=== PATIENT | female | born 2005 | race Caucasian/White ===

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

== ENCOUNTER 2024-02-13 17:52 | Emergency (ER) | payer BC ==
[2024-02-13] MEDS ORDERED: SODIUM CHLORIDE 0.9% 1,000 ML IV STA (18:21)
[2024-02-13 18:26] VITALS: RESP 16; TEMP 98
--- NOTE | 2024-02-13 18:27 | ED ---
Dizziness HPI - General Chief Complaint: Syncope Stated Complaint: Syncope Time Seen by Provider: 02/13/24 18:03 Source: patient, EMS, RN notes reviewed Mode of arrival: EMS Limitations: no limitations - History of Present Illness Initial Comments: 19-year-old female who states she has syncopal episode about an hour prior to coming to the ER today. She states she has been having trouble getting up and suffering dizzy spells and sweats she states she is having to eat or drink very well last least several days food just does not taste good to her. She did fall and hit the back and side of her head she complains of right side head pain she has had some neck pain for the past couple days cannot related to today's incident. No loss of function to her upper or lower extremities no fevers chills or sweats she has had some nausea no other complaints she denies any chance of . She does smoke marijuana but this does not help her appetite she states she also states she has been having some epigastric discomfort intermittently. She does have a history of cholecystectomy for biliary dyskinesia. MD Complaint: dizziness, near syncope, other - Related Data Home Medications Medication Instructions Recorded Confirmed Ibuprofen 200 mg PO Q8H PRN 05/01/21 05/02/21 Previous Rx's Medication Instructions Recorded Acetaminophen Tab [Tylenol] 650 mg PO Q6H #30 tab 05/02/21 Docusate [Colace] 100 mg PO BID #20 capsule 05/02/21 oxyCODONE HCL [OxyIR] 5 mg PO Q6H PRN 3 Days #10 tab 05/02/21 Allergies Allergy/AdvReac Type Severity Reaction Status Date / Time No Known Allergies Allergy Verified 05/02/21 08:04 Review of Systems ROS Statement: Those systems with pertinent positive or pertinent negative responses have been documented in the HPI. ROS Other: All systems not noted in ROS Statement are negative. Past Medical History Past Medical History: Chest Pain / Angina, Neurologic Disorder Additional Past Medical History / Comment(s): visual snow syndrome, Gallbladder issues, diarrhea for couple months, "chest pain could be from gall bladder problems", nipple piercing History of Any Multi-Drug Resistant Organisms: None Reported Past Surgical History: Orthopedic Surgery Additional Past Surgical History / Comment(s): rt knee arthroscopy Past Anesthesia/Blood Transfusion Reactions: No Reported Reaction Smoking Status: Vaper - Past Family History Mother Family Medical History: No Reported History General Exam - General Exam Comments Initial Comments: This is a well-developed well-nourished awake alert oriented x 4 female with a [place] Coma Scale of 15 Limitations: no limitations General appearance: alert, in no apparent distress Head exam: Present: normocephalic, normal inspection, other (Some tenderness palpation of the right temporal scalp near the forehead no step-off or crepitation no obvious bruising seen) Eye exam: Present: normal appearance, PERRL, EOMI. Absent: scleral icterus, conjunctival injection, periorbital swelling ENT exam: Present: mucous membranes dry Neck exam: Present: normal inspection, tenderness (Mild paraspinous tenderness to palpation no midline tenderness), full ROM, other (No stridor JVD or bruits). Absent: meningismus, lymphadenopathy Respiratory exam: Present: normal lung sounds bilaterally. Absent: respiratory distress, wheezes, rales, rhonchi, stridor Cardiovascular Exam: Present: regular rate, normal rhythm, normal heart sounds. Absent: systolic murmur, diastolic murmur, rubs, gallop, clicks GI/Abdominal exam: Present: soft, normal bowel sounds. Absent: distended, tenderness, guarding, rebound, rigid Extremities exam: Present: normal inspection, full ROM, normal capillary refill. Absent: tenderness, pedal edema, joint swelling, calf tenderness Back exam: Present: normal inspection Neurological exam: Present: alert, oriented X3, CN II-XII intact Psychiatric exam: Present: normal affect, normal mood Skin exam: Present: warm, dry, intact, normal color. Absent: rash Course Vital Signs 02/13/24 02/13/24 17:55 19:03 Temperature 98.0 F Pulse Rate 99 Respiratory 16 16 Rate Blood Pressure 138/88 Blood Pressure 134/88 [Right Arm Sitting] Blood Pressure 147/103 [Right Arm Supine] Blood Pressure 128/83 [Right Arm] O2 Sat by Pulse 99 96 Oximetry EKG Findings - EKG Results: EKG: interpreted by [facility] (EKG shows sinus rhythm 75 parable 168 QRS duration 96 QT/QTc 390/[address]-T wave changes) Medical Decision Making - Medical Decision Making I did reevaluate the patient on several occasions she is feeling much improved after IV fluids. I did discuss with her the findings and did recommend she quit smoking marijuana increase her oral intake of food and fluids. Multiple family members at the bedside. Patient will be discharged home with the above recommendations. I did caution her that marijuana can many times include other drugs that people are not aware of. Was pt. sent in by a medical professional or institution (BALAJI Hobbs, VARNISHING MACHINE OPERATOR, urgent care, hospital, or [place] health care facility...) When possible be specific @ -No Did you speak to anyone other than the patient for history (EMS, parent, family, police, friend...)? What history was obtained from this source @ -EMS personnel Did you review nursing and triage notes (agree or disagree)? Why? @ -I reviewed and agree with nursing and triage notes Were old charts reviewed (outside hosp., previous admission, EMS record, old EK G, old radiological studies, urgent care reports/EKG's, [place] [facility] facility records)? Report findings @ -Old charts were reviewed Differential Diagnosis (chest pain, altered mental status, abdominal pain women, abdominal pain men, vaginal bleeding, weakness, fever, dyspnea, syncope, headache, dizziness, GI bleed, back pain, seizure, CVA, palpatations, mental health, musculoskeletal)? @ -Syncope EKG interpreted by me (3pts min.). @ -As above EKG interpreted by me sinus rhythm with sinus arrhythmia rate 75 parable 168 QRS duration 96 QT/QTc 390/419 left atrial enlargement possible right ventricular conduction delay nonspecific ST configuration no acute process seen X-rays interpreted by me (1pt min.). @ -Interpreted by me no acute process seen CT interpreted by me (1pt min.). @ -Imaging interpreted by me no acute process seen U/S interpreted by me (1pt. min.). @ -None done What testing was considered but not performed or refused? (CT, X-rays, U/S, labs)? Why? @ -None What meds were considered but not given or refused? Why? @ -None Did you discuss the management of the patient with other professionals (professionals i.e. BALAJI Hobbs, VARNISHING MACHINE OPERATOR, lab, RT, psych nurse, social contact worker, financial management, teacher, guest services officer, case making machine operator)? Give summary @ -No Was smoking cessation discussed for >3mins.? @ -No Was critical care preformed (if so, how long)? @ -No Were there social determinants of health that impacted care today? How? (Homelessness, low income, unemployed, alcoholism, drug addiction, transportation, low edu. Level, literacy, decrease access to med. care, fci, rehab)? @ -No Was there de-escalation of care discussed even if they declined (Discuss DNR or withdrawal of care, Hospice)? DNR status @ -No What co-morbidities impacted this encounter? (DM, HTN, Smoking, COPD, CAD, Ca ncer, CVA, ARF, Chemo, Hep., AIDS, mental health diagnosis, sleep apnea, morbid obesity)? @ -Anorexia, prior history of cholecystectomy Was patient admitted / discharged? Hospital course, mention meds given and route, prescriptions, significant lab abnormalities, going to OR and other pertinent info. @ -Hospital course the patient was discharged home with instructions to increase oral fluids and food and avoid marijuana. Undiagnosed new problem with uncertain prognosis? @ -No Drug Therapy requiring intensive monitoring for toxicity (Heparin, Nitro, Insulin, Cardizem)? @ -No Were any procedures done? @ -No Diagnosis/symptom? @ -Syncope, scalp contusion, marijuana use, dehydration Acute, or Chronic, or Acute on Chronic? @ -Acute Uncomplicated (without systemic symptoms) or Complicated (systemic symptoms)? @ -Default Side effects of treatment? @ -No Exacerbation, Progression, or Severe Exacerbation? @ -No Poses a threat to life or bodily function? How? (Chest pain, [place], [place], pneumonia, PE, COPD, DKA, ARF, appy, cholecystitis, CVA, Diverticulitis, Homicidal, Suicidal, threat to staff... and all critical care pts) @ -Potential, syncope - Lab Data Result diagrams: 02/13/24 18:46 02/13/24 18:46 Lab Results 02/13/24 02/13/24 02/13/24 Range/Units 18:46 18:46 18:46 WBC 9.8 (3.8-10.6) k/uL RBC 5.11 (3.80-5.40) m/uL Hgb 14.9 (11.4-16.0) gm/dL Hct 44.6 (34.0-46.0) % MCV 87.4 (80.0-100.0) fL MCH 29.2 (25.0-35.0) pg MCHC 33.4 (31.0-37.0) g/dL RDW 12.2 (11.5-15.5) % Plt Count 364 (150-450) k/uL MPV 8.2 Neutrophils % 71 % Lymphocytes % 21 % Monocytes % 5 % Eosinophils % 1 % Basophils % 1 % Neutrophils # 7.0 (1.3-7.7) k/uL Lymphocytes # 2.1 (1.0-4.8) k/uL Monocytes # 0.5 (0-1.0) k/uL Eosinophils # 0.1 (0-0.7) k/uL Basophils # 0.1 (0-0.2) k/uL D-Dimer 0.18 (<0.60) mg/L FEU Sodium (137-145) mmol/L Potassium (3.5-5.1) mmol/L Chloride (98-107) mmol/L Carbon Dioxide (22-30) mmol/L Anion Gap mmol/L BUN (7-17) mg/dL Creatinine (0.52-1.04) mg/dL Est GFR (CKD-EPI)AfAm (>60 ml/min/1.73 sqM) Est GFR (CKD-EPI)NonAf (>60 ml/min/1.73 sqM) Glucose (74-99) mg/dL Calcium (8.4-10.2) mg/dL Magnesium (1.6-2.3) mg/dL Total Bilirubin (0.2-1.3) mg/dL AST (14-36) U/L ALT (4-34) U/L Alkaline Phosphatase (38-126) U/L Creatine Kinase (30-135) U/L Troponin I (0.000-0.034) ng/mL Total Protein (6.3-8.2) g/dL Albumin (3.5-5.0) g/dL TSH (0.465-4.680) mIU/L Urine Color Yellow Urine Appearance Cloudy H (Clear) Urine pH 6.0 (5.0-8.0) Ur Specific [place] 1.030 (1.001-1.035) Urine Protein 1+ H (Negative) Urine Glucose (UA) Negative (Negative) Urine Ketones 2+ H (Negative) Urine Blood Negative (Negative) Urine Nitrite Negative (Negative) Urine Bilirubin Negative (Negative) Urine Urobilinogen <2.0 (<2.0) mg/dL Ur Leukocyte Esterase Moderate H (Negative) Urine RBC 1 (0-5) /hpf Urine WBC 7 H (0-5) /hpf Ur Squamous Epith Cells 5 H (0-4) /hpf Urine Mucus Many H (None) /hpf Urine HCG, Qual (Not Detectd) Urine Opiates Screen Not Detected (NotDetected) Ur Oxycodone Screen Not Detected (NotDetected) Urine Methadone Screen Not Detected (NotDetected) Ur Barbiturates Screen Not Detected (NotDetected) U Tricyclic Antidepress Not Detected (NotDetected) Ur Phencyclidine Scrn Not Detected (NotDetected) Ur Amphetamines Screen Detected H (NotDetected) U Methamphetamines Scrn Detected H (NotDetected) U Benzodiazepines Scrn Not Detected (NotDetected) Urine Cocaine Screen Not Detected (NotDetected) U Marijuana (THC) Screen Detected H (NotDetected) Serum Alcohol mg/dL 02/13/24 02/13/24 02/13/24 Range/Units 18:46 18:46 18:46 WBC (3.8-10.6) k/uL RBC (3.80-5.40) m/uL Hgb (11.4-16.0) gm/dL Hct (34.0-46.0) % MCV (80.0-100.0) fL MCH (25.0-35.0) pg MCHC (31.0-37.0) g/dL RDW (11.5-15.5) % Plt Count (150-450) k/uL MPV Neutrophils % % Lymphocytes % % Monocytes % % Eosinophils % % Basophils % % Neutrophils # (1.3-7.7) k/uL Lymphocytes # (1.0-4.8) k/uL Monocytes # (0-1.0) k/uL Eosinophils # (0-0.7) k/uL Basophils # (0-0.2) k/uL D-Dimer (<0.60) mg/L FEU Sodium 137 (137-145) mmol/L Potassium 3.8 (3.5-5.1) mmol/L Chloride 105 (98-107) mmol/L Carbon Dioxide 21 L (22-30) mmol/L Anion Gap 11 mmol/L BUN 11 (7-17) mg/dL Creatinine 0.75 (0.52-1.04) mg/dL Est GFR (CKD-EPI)AfAm >90 (>60 ml/min/1.73 sqM) Est GFR (CKD-EPI)NonAf >90 (>60 ml/min/1.73 sqM) Glucose 87 (74-99) mg/dL Calcium 9.3 (8.4-10.2) mg/dL Magnesium 1.8 (1.6-2.3) mg/dL Total Bilirubin 0.6 (0.2-1.3) mg/dL AST 19 (14-36) U/L ALT 12 (4-34) U/L Alkaline Phosphatase 75 (38-126) U/L Creatine Kinase 49 (30-135) U/L Troponin I <0.012 (0.000-0.034) ng/mL Total Protein 6.9 (6.3-8.2) g/dL Albumin 4.2 (3.5-5.0) g/dL TSH 0.751 (0.465-4.680) mIU/L Urine Color Urine Appearance (Clear) Urine pH (5.0-8.0) Ur Specific [place] (1.001-1.035) Urine Protein (Negative) Urine Glucose (UA) (Negative) Urine Ketones (Negative) Urine Blood (Negative) Urine Nitrite (Negative) Urine Bilirubin (Negative) Urine Urobilinogen (<2.0) mg/dL Ur Leukocyte Esterase (Negative) Urine RBC (0-5) /hpf Urine WBC (0-5) /hpf Ur Squamous Epith Cells (0-4) /hpf Urine Mucus (None) /hpf Urine HCG, Qual Not Detected (Not Detectd) Urine Opiates Screen (NotDetected) Ur Oxycodone Screen (NotDetected) Urine Methadone Screen (NotDetected) Ur Barbiturates Screen (NotDetected) U Tricyclic Antidepress (NotDetected) Ur Phencyclidine Scrn (NotDetected) Ur Amphetamines Screen (NotDetected) U Methamphetamines Scrn (NotDetected) U Benzodiazepines Scrn (NotDetected) Urine Cocaine Screen (NotDetected) U Marijuana (THC) Screen (NotDetected) Serum Alcohol <10 mg/dL Disposition Clinical Impression: Syncope due to orthostatic hypotension, Dehydration, Scalp contusion, Marijuana use Disposition: ADMITTED IP TO THIS HOSP Condition: Good Additional Instructions: Ice to affected areas, increase oral fluids and food, avoid marijuana Is patient prescribed a controlled substance at d/c from ED?: No Referrals: Lynn Rose MD [Primary Care Provider] - 1-2 days Time of Disposition: 20:19 Decision Date: 02/13/24 Decision Time: 20:19
[2024-02-13] MEDS: SODIUM CHLORIDE 0.9% 1,000 ML IV STA (18:35)
[2024-02-13 18:54] LABS: Basophils # (A) 0.1 k/uL (0-0.2); Basophils % (A) 1 %; Eosinophils # (A) 0.1 k/uL (0-0.7); Eosinophils % (A) 1 %; HCT 44.6 % (34.0-46.0); HGB 14.9 gm/dL (11.4-16.0); Lymphocytes # (A) 2.1 k/uL (1.0-4.8); Lymphocytes % (A) 21 %; MCH 29.2 pg (25.0-35.0); MCHC 33.4 g/dL (31.0-37.0); MCV 87.4 fL (80.0-100.0); Mean Platelet Volume 8.2; Monocytes # (A) 0.5 k/uL (0-1.0); Monocytes % (A) 5 %; Neutrophils % (A) 71 %; Platelet Count 364 k/uL (150-450); RBC 5.11 m/uL (3.80-5.40); RDW 12.2 % (11.5-15.5); WBC 9.8 k/uL (3.8-10.6)
[2024-02-13 19:02] LABS: Appearance,Urine Cloudy (Clear); Bilirubin,Urine Negative (Negative); Blood,Urine Negative (Negative); Color,Urine Yellow; Glucose,Urine (UA) Negative (Negative); Ketones,Urine 2+ (Negative); Leukocyte Esterase,Urine Moderate (Negative); Mucus,Urine Many /hpf; Nitrite,Urine Negative (Negative); Protein,Urine 1+ (Negative); RBC,Urine 1 /hpf (0-5); Squamous Epithelial Cell,Urine 5 /hpf (0-4); Urobilinogen,Urine <2.0 mg/dL (<2.0); WBC,Urine 7 /hpf (0-5)
[2024-02-13 19:05] LABS: ALT 12 U/L (4-34); AST 19 U/L (14-36); African American GFR (CKD) >90 (>60 ml/min/1.73 sqM); Albumin 4.2 g/dL (3.5-5.0); Alcohol <10 mg/dL; Alkaline Phosphatase 75 U/L (38-126); Anion Gap 11 mmol/L; Blood Urea Nitrogen 11 mg/dL (7-17); Calcium 9.3 mg/dL (8.4-10.2); Carbon Dioxide 21 mmol/L (22-30); Chloride 105 mmol/L (98-107); Creatine Kinase 49 U/L (30-135); Glucose 87 mg/dL (74-99); Magnesium 1.8 mg/dL (1.6-2.3); Non-African American GFR(CKD) >90 (>60 ml/min/1.73 sqM); Potassium 3.8 mmol/L (3.5-5.1); Sodium 137 mmol/L (137-145); Total Bilirubin 0.6 mg/dL (0.2-1.3); Total Protein 6.9 g/dL (6.3-8.2)
[2024-02-13 19:08] LABS: Amphetamine Screen,Urine Detected (NotDetected); Barbiturate Screen,Urine Not Detected (NotDetected); Benzodiazepines Screen,Urine Not Detected (NotDetected); Cocaine Screen,Urine Not Detected (NotDetected); Methadone Screen, Urine Not Detected (NotDetected); Opiate Screen,Urine Not Detected (NotDetected); Oxycodone Screen, Urine Not Detected (NotDetected); Phencyclidine Screen,Urine Not Detected (NotDetected); Tricyclic Antidepressant,Urine Not Detected (NotDetected); Urn Cannabinoid Scrn Detected (NotDetected)
--- NOTE | 2024-02-13 19:59 | CT ---
EXAMINATION TYPE: CT brain cspine wo con CT DLP: 1328.8 mGycm, Automated exposure control for dose reduction was used. DATE OF EXAM: 02/13/2024 7:43 PM COMPARISON: None. CLINICAL INDICATION:Female, 19 years old with history of Trauma; syncope TECHNIQUE: Brain: Multiple axial CT images of the brain were obtained without IV contrast. Cspine: Axial CT images from the skull base to the inferior aspect of T2 we obtained without intraven ous contrast. Coronal and sagittal reformatted images were also reviewed. FINDINGS: Brain: Extra-axial spaces: No abnormal extra-axial fluid collections. Ventricular system: Within normal limits Cerebral parenchyma: No acute intraparenchymal hemorrhage or mass effect. The martines-white junction is well differentiated. Cerebellum: Unremarkable. Mass effect: No evidence of midline shift. Intracranial vasculature: unremarkable Soft tissues: Normal. Calvarium/osseous structures: No depressed skull fracture. Paranasal sinuses and mastoid air cells: Clear. Visualized orbits: Orbital contents are intact. Cervical spine: Fracture: None. Osseous structures: Unremarkable Vertebral alignment: Within normal limits. Spinal canal/Neural Foramina: No evidence of significant spinal canal narrowing. No evidence for sign ificant neural foraminal stenosis. Neck soft tissues: Prevertebral soft tissues are within normal limits. Other: The airway is patent. The lung apices are clear. IMPRESSION: 1. No acute intracranial process. 2. No evidence of cervical spine fracture.
--- NOTE | 2024-02-13 20:11 | XR ---
EXAMINATION TYPE: XR chest 2V DATE OF EXAM: 02/13/2024 7:49 PM CLINICAL INDICATION:Female, 19 years old with history of Syncope; [facility] COMPARISON: Chest radiographs from 04/22/2021. TECHNIQUE: XR chest 2V Frontal and lateral views of the chest. FINDINGS: Lungs/Pleura: There is no evidence of pleural effusion, focal consolidation, or pneumothorax. Pulmonary vascularity: Unremarkable. Heart/mediastinum: Cardiomediastinal silhouette is unremarkable. Musculoskeletal: No acute osseous pathology. Mild scoliosis changes of the spine. IMPRESSION: No acute cardiopulmonary disease/process.
[2024-02-13 20:32] VITALS: BP 133/69; PULSE 89
== END 2024-02-13 20:29 | disposition other institution (70) ==
LOC: EC 17:52
DX: S00.03XA Contusion of scalp, initial encounter (principal); I95.1 Orthostatic hypotension; R63.0 Anorexia; E86.0 Dehydration; F12.90 Cannabis use, unspecified, uncomplicated; F17.290 Nicotine dependence, other tobacco product, uncomplicated; Z68.21 Body mass index [BMI] 21.0-21.9, adult; W19.XXXA Unspecified fall, initial encounter
CPT/HCPCS: 36415; 70450; 71046; 72125; 80053; 80306; 80320; 81001; 81025; 82550; 83735; 84443; 84484; 85025; 85379; 93005; 96360; 99285

== ENCOUNTER → 2024-05-19 | Outpatient (CLI) | payer BC ==
--- NOTE | 2024-05-19 13:47 | US ---
EXAMINATION TYPE: US carotid duplex BILAT DATE OF EXAM: 05/19/2024 COMPARISON: NONE CLINICAL INDICATION: Female, 19 years old with history of R55 SYNCOPE AND COLLAPSE; TECHNIQUE: Carotid duplex ultrasound examination. Indirect Doppler criteria was utilized. FINDINGS: EXAM MEASUREMENTS: RIGHT: Peak Systolic Velocity (PSV) cm/sec ----- Right CCA: 105.6 ----- Right ICA: 71.8 ----- Right ECA: 78.3 ICA/CCA ratio: 0.7 RIGHT: End Diastole cm/sec ----- Right CCA: 31.4 ----- Right ICA: 32.5 ----- Right ECA: 14.7 LEFT: Peak Systolic Velocity (PSV) cm/sec ----- Left CCA: 117.3 ----- Left ICA: 69.6 ----- Left ECA: 78.2 ICA/CCA ratio: 0.6 LEFT: End Diastole cm/sec ----- Left CCA: 30.0 ----- Left ICA: 28.4 ----- Left ECA: 16.9 VERTEBRALS (direction of flow): Right Vertebral: Antegrade Left Vertebral: Antegrade Rhythm: Normal No significant stenosis IMPRESSION: 1. No atheromatous plaque. 2. No stenosis of the carotid trifurcations based on color and grayscale imaging and peak systolic ve locities and ratios. Criteria for Assigning % of Stenosis / Diameter reduction (Estimation based on the indirect measurements of the internal carotid artery velocities (ICA PSV). 1. Normal (no stenosis)=ICA PSV < 125 cm/s: ratio < 2.0: ICA EDV<40 cm/s. 2. Less than 50% stenosis=ICA PSV < 125 cm/s: ratio < 2.0: ICA EDV<40 cm/s. 3. 50 to 69% stenosis=ICA PSV of 125 to 230 cm/s: ration 2.0 ? 4.0: ICA EDV 40-100 cm/s. 4. Greater than 70% stenosis to near occlusion= ICA PSV > 230 cm/s: ratio > 4.0: ICA EDV > 100 cm/s. 5. Near occlusion= ICA PSV velocities may be low or undetectable: variable ratio and ICA EDV. 6. Total occlusion=unable to detect flow.
== END | disposition home or self-care (01) ==
LOC: RADUSWWP 07:12
PROVIDERS: ATTEND Family Medicine
DX: R55 Syncope and collapse (principal)
CPT/HCPCS: 93880